=== PATIENT | female | born 1950 | race Caucasian/White ===

== ENCOUNTER 2024-07-24 11:05 | Outpatient (RCR) | payer MEDICARE, SELFPAY | END 2024-07-24 23:59 | disposition home or self-care (01) | LOC: RPT 11:05 | PROVIDERS: ATTENDING PHYSICIAN Internal Medicine | DX: I89.0 Lymphedema, not elsewhere classified (principal); E66.9 Obesity, unspecified; Z73.6 Limitation of activities due to disability | CPT/HCPCS: 97016; 97110; 97162; 97530 ==

== ENCOUNTER 2024-08-28 11:52 | Outpatient (RCR) | payer MEDICARE, SELFPAY | END 2024-08-28 23:59 | disposition home or self-care (01) | LOC: RPT 11:52 | PROVIDERS: ATTENDING PHYSICIAN Internal Medicine | DX: I89.0 Lymphedema, not elsewhere classified (principal); E66.9 Obesity, unspecified; Z73.6 Limitation of activities due to disability | CPT/HCPCS: 97016; 97110; 97140; 97530 ==

== ENCOUNTER → 2024-09-21 10:54 | Outpatient (REF) | payer MEDICARE, SELFPAY | LOC: HWWDC 10:54 | PROVIDERS: ATTENDING PHYSICIAN Internal Medicine | DX: Z12.31 Encounter for screening mammogram for malignant neoplasm of breast (principal) | CPT/HCPCS: 77063; 77067 ==

== ENCOUNTER 2024-09-29 12:42 | Outpatient (RCR) | payer MEDICARE, SELFPAY | END 2024-09-29 14:06 | disposition home or self-care (01) | LOC: RPT 12:42 | PROVIDERS: ATTENDING PHYSICIAN Internal Medicine | DX: I89.0 Lymphedema, not elsewhere classified (principal); E66.9 Obesity, unspecified; Z73.6 Limitation of activities due to disability | CPT/HCPCS: 97140; 97530 ==